=== PATIENT | male | born 1975 | race Caucasian/White ===

== ENCOUNTER → 2017-09-04 | Outpatient (REF) | payer BC, SELFPAY | LOC: M LAB REF 18:23 | PROVIDERS: ATTEND Nurse Practitioner Family | DX: R53.83 Other fatigue (principal) ==

== ENCOUNTER → 2019-05-27 | Outpatient (REF) | payer OTHER ==
[2019-05-27 15:47] LABS: CK-MB VALUE MASS 4.4 NG/ML (<3.6); CPK CREATINE PHOSPHOKINASE 156 U/L (39-308); MB/CK RELATIVE INDEX 2.82 (< OR =4); TROPONIN I < 0.02 NG/ML (< 0.10)
== END ==
LOC: M LAB REF 15:10
PROVIDERS: ATTEND Physician Assistant
DX: R07.9 Chest pain, unspecified (principal)

== ENCOUNTER 2021-07-31 20:26 | Emergency (ER) | payer OTHER ==
[~2021-07-31] VITALS: Ht 182.9 cm; Wt 100.0 kg
[2021-07-31] MEDS ORDERED: ATEN50TA2 PO (20:37)
[2021-07-31] MEDS ORDERED: LOSA50TA88 PO (20:37)
[2021-07-31] MEDS ORDERED: MECLIZINE 25 MG TABLET PO ONE (21:05)
[2021-07-31] MEDS ORDERED: ONDANSETRON 4MG/2ML VIAL IV ONE (21:05)
[2021-07-31] MEDS ORDERED: NS 1,000 ML IV SCH (21:05)
[2021-07-31 21:17] LABS: BASO # 0.1 10^3/uL (0.0-0.2); BASO % 0.9 % (0.0-1.0); EOS # 0.2 10^3/uL (0.0-0.5); EOS % 1.9 % (0.0-3.0); HEMOGLOBIN 15.2 g/dl (13.5-17.5); LYMPH # 2.1 10^3/uL (1.5-5.0); LYMPH % 27.3 % (24.0-44.0); MEAN CORPUSCULAR HEMOGLOBIN 27.1 pg (27.0-33.0); MEAN CORPUSCULAR HGB CONC 33.8 g/dl (32.0-36.5); MEAN CORPUSCULAR VOLUME 80.2 fl (80.0-96.0); MONO # 0.7 10^3/uL (0.0-0.8); MONO % 9.3 % (2.0-8.0); NEUTROPHILS # 4.7 10^3/uL (1.5-8.5); NEUTROPHILS % 60.3 % (36.0-66.0); PLATELET COUNT, AUTOMATED 114 10^3/uL (150-450); RED BLOOD COUNT 5.61 10^6/uL (4.30-6.10); WHITE BLOOD COUNT 7.9 10^3/uL (4.0-10.0)
[2021-07-31 21:58] LABS: ALBUMIN 4.3 GM/DL (3.2-5.2); ALT/SGPT 59 U/L (12-78); BILIRUBIN,DIRECT 0.3 MG/DL (0.0-0.2); BILIRUBIN,TOTAL 1.1 MG/DL (0.2-1.0); BLOOD UREA NITROGEN 14 MG/DL (7-18); CALCIUM LEVEL 9.4 MG/DL (8.5-10.1); CARBON DIOXIDE LEVEL 30 MEQ/L (21-32); CHLORIDE LEVEL 105 MEQ/L (98-107); CPK CREATINE PHOSPHOKINASE 169 U/L (39-308); CREATININE FOR GFR 1.22 MG/DL (0.70-1.30); FREE T4 0.85 NG/DL (0.76-1.46); GLOMERULAR FILTRATION RATE > 60.0 (>60); GLUCOSE, FASTING 104 MG/DL (70-100); MB/CK RELATIVE INDEX 2.96 (< OR =4); POTASSIUM SERUM 3.9 MEQ/L (3.5-5.1); SODIUM LEVEL 141 MEQ/L (136-145); TOTAL PROTEIN 6.9 GM/DL (6.4-8.2); TROPONIN I < 0.02 NG/ML (< 0.10)
[2021-07-31] MEDS ORDERED: METOCLOPRAMIDE INJ 10MG/2ML VIAL (J2765 PER 1) IV ONE (22:15)
[2021-07-31] MEDS ORDERED: ISOVUE-370 76% 100ML VIAL As Ordered ONE (22:17)
--- NOTE | 2021-07-31 22:20 | REPVR ---
PROCEDURE INFORMATION: Exam: MRA Head Without Contrast; Arteriography Exam date and time: 07/31/2021 9:30 PM Age: 46 years old Clinical indication: Dizziness and giddiness and headache and vertigo TECHNIQUE: Imaging protocol: Magnetic resonance angiography head without contrast. Exam focused on the arteries. COMPARISON: No relevant prior studies available. FINDINGS: ANTERIOR CIRCULATION: Right internal carotid artery: Intracranial segment is patent with no significant stenosis. No aneurysm. Right middle cerebral artery: No occlusion or significant stenosis. No aneurysm. Right anterior cerebral artery: No occlusion or significant stenosis. No aneurysm. Left internal carotid artery: Intracranial segment is patent with no significant stenosis. No aneurysm. Left middle cerebral artery: No occlusion or significant stenosis. No aneurysm. Left anterior cerebral artery: No occlusion or significant stenosis. No aneurysm. POSTERIOR CIRCULATION: Right vertebral artery: No occlusion or significant stenosis. No aneurysm. Left vertebral artery: Left vertebral artery is dominant. Basilar artery: No occlusion or significant stenosis. No aneurysm. Right posterior cerebral artery: No occlusion or significant stenosis. No aneurysm. Left posterior cerebral artery: Carotid dominant left posterior cerebral artery. IMPRESSION: No hemodynamically significant stenosis or large vessel occlusion. Electronically signed by: Josemanuel Goddard On 07/31/2021 22:19:26 PM
--- NOTE | 2021-07-31 22:20 | REPVR ---
PROCEDURE INFORMATION: Exam: MR Head Without Contrast Exam date and time: 07/31/2021 9:30 PM Age: 46 years old Clinical indication: Dizziness TECHNIQUE: Imaging protocol: MR of the head without contrast. COMPARISON: No relevant prior studies available. FINDINGS: Ventricles demonstrate normal size and configuration. Major vascular flow voids at the skull base are preserved. No extra-axial fluid collection. No hydrocephalus. No midline shift or intracranial mass effect. No pathologic white-matter signal or cerebral edema. No pathologic susceptibility. No diffusion restriction. Minimal paranasal sinus disease. No significant mastoid effusion. IMPRESSION: No acute intracranial abnormality. Electronically signed by: Josemanuel Goddard On 07/31/2021 22:19:33 PM
[2021-07-31] MEDS ORDERED: KETOROLAC 30 MG/ML 1ML VIAL IV ONE (22:50)
--- NOTE | 2021-07-31 23:33 | REPVR ---
PROCEDURE INFORMATION: Exam: CT Angiography Neck With Contrast Exam date and time: 07/31/2021 11:00 PM Age: 46 years old Clinical indication: Pain; Headache; Additional info: Neck pain, dizzy TECHNIQUE: Imaging protocol: Computed tomography angiography of the neck with contrast. 3D rendering (Not supervised by radiologist): MIP and/or 3D reconstructed images were created by the technologist. Radiation optimization: All CT scans at this facility use at least one of these dose optimization techniques: automated exposure control; mA and/or kV adjustment per patient size (includes targeted exams where dose is matched to clinical indication); or iterative reconstruction. Contrast material: ISOVUE 370; Contrast volume: 75 ml; Contrast route: INTRAVENOUS (IV); COMPARISON: MRA BRAIN W/O CONTRAST 07/31/2021 9:24 PM FINDINGS: Limitations: Artifact arising from metallic dental hardware. Right common carotid artery: No stenosis. No dissection or occlusion. Right internal carotid artery: No stenosis of the extracranial segment. No dissection or occlusion. Right external carotid artery: No occlusion or stenosis of the origin. Left common carotid artery: No stenosis. No dissection or occlusion. Left internal carotid artery: No stenosis of the extracranial segment. No dissection or occlusion. Left external carotid artery: No occlusion or stenosis of the origin. Right vertebral artery: No stenosis. No dissection or occlusion. Left vertebral artery: Left vertebral artery is dominant. Soft tissues: Normal. No significant soft tissue swelling. Bones/joints: No acute fracture. IMPRESSION: No hemodynamically significant stenosis or dissection. REFERENCES: NASCET CRITERIA. The degree of internal carotid artery stenosis is based on NASCET criteria. Normal is no stenosis. Mild is less than 50% stenosis. Moderate is 50-69% stenosis. Severe is 70% to 99% stenosis. Total occlusion is no detectable patent lumen. Electronically signed by: Josemanuel Goddard On 07/31/2021 23:33:10 PM
[2021-07-31] MEDS ORDERED: MECL1TAB31 PO (23:44)
[2021-07-31] MEDS ORDERED: ZOFR4TAB16 PO (23:44)
[2021-07-31 23:45] VITALS: BP 125/62
--- NOTE | 2021-08-01 20:28 | ECGEPIP ---
[facility] - ED Test Date: 2021-07-31 Pat Name: ESTEBAN ULLOA Department: Room: - Gender: Male Entertainment Musician: JJayda : 1975 Requested By: JEAN Garcia Order Number: [id number] Reading MD: Radha Camacho Measurements Intervals [place] Rate: 58 P: 22 VT: 136 QRS: 57 QRSD: 92 T: 20 QT: 412 QTc: 404 Interpretive Statements Sinus bradycardia No prior Electronically Signed on 08-01-2021 20:27:59 EST by Radha Camacho
== END 2021-07-31 23:56 | disposition home or self-care (01) ==
LOC: M ED 20:26
DX: H81.4 Vertigo of central origin (principal); I10 Essential (primary) hypertension; K21.9 Gastro-esophageal reflux disease without esophagitis; Z88.0 Allergy status to penicillin
CPT/HCPCS: 70498; 70544; 70551; 80048; 80076; 82550; 82553; 84439; 84443; 84484; 85025; 93005; 93041; 94760; 96361; 96374; 96375; 99285; J1885; J2405; J2765; Q9967

== ENCOUNTER → 2023-02-20 | Outpatient (CLI) | payer OTHER ==
[~2023-02-20] MED LIST: ATEN50TA2 PO; LOSA50TA28 PO; MECL1TAB31 PO; ZOFR4TAB16 PO
== END ==
LOC: M RAD 06:38
PROVIDERS: ATTEND Nurse Practitioner Family
DX: R10.12 Left upper quadrant pain (principal)

== ENCOUNTER 2025-06-22 12:20 | Emergency (ER) | payer OTHER ==
[~2025-06-22] VITALS: Ht 182.9 cm; Wt 96.7 kg
[~2025-06-22 12:20] MED LIST changes: +MECL-209 PO; -MECL1TAB31 PO
[2025-06-22] MEDS ORDERED: ISOVUE-370 76% 100 ML VIAL As Ordered ONE (13:25)
[2025-06-22 13:38] LABS: BASO # 0.1 10^3/uL (0.0-0.2); BASO % 0.5 % (0.0-1.0); EOS # 0.1 10^3/uL (0.0-0.5); EOS % 0.6 % (0.0-3.0); LYMPH # 1.2 10^3/uL (1.5-5.0); LYMPH % 12.1 % (24.0-44.0); MONO # 1.0 10^3/uL (0.0-0.8); MONO % 10.2 % (2.0-8.0); NEUTROPHILS # 7.4 10^3/uL (1.5-8.5); NEUTROPHILS % 76.0 % (36.0-66.0); PLATELET COUNT, AUTOMATED 131 10^3/uL (150-450)
[2025-06-22 13:43] LABS: ERYTHROCYTE SEDIMENTATION RATE 5 mm/hr (0-20)
[2025-06-22] MEDS: diphenhydrAMINE 50 MG/ML VIAL IV STA (13:51)
[2025-06-22] MEDS: KETOROLAC 30 MG/ML 1 ML VIAL IV ONE (13:51)
[2025-06-22] MEDS: AMPICILLIN SOD/SULBACTAM SOD 3 GM in DEXTROSE 5% (D5W) MINI-BAG PLU 100 ML IV ONE ×2 (13:51→20:11)
[2025-06-22 19:34] VITALS: BP 145/84
[2025-06-22] MEDS ORDERED: HYDR-3713 PO (20:19)
[2025-06-22 20:31] VITALS: O2SAT 95
[2025-06-22] MEDS: NORCO 5/325MG TABLET (HOME DOSE PACK) PO ONE (20:46)
[2025-06-22 20:49] VITALS: TEMP 97.9
== END 2025-06-22 20:56 | disposition home or self-care (01) ==
LOC: M ED 12:20
DX: L03.211 Cellulitis of face (principal); I10 Essential (primary) hypertension; Z88.0 Allergy status to penicillin; Z79.1 Long term (current) use of non-steroidal anti-inflammatories (NSAID); Z79.899 Other long term (current) drug therapy
CPT/HCPCS: 70491; 80047; 85025; 85652; 86140; 96365; 96375; 99285; J0295; J1100; J1200; J1885; Q9967

== ENCOUNTER 2025-06-23 04:10 | Emergency (ER) | payer OTHER ==
[~2025-06-23] VITALS: Ht 182.9 cm; Wt 96.7 kg
[~2025-06-23 04:10] MED LIST changes: +HYDR-3713 PO
[2025-06-23] MEDS: AMPICILLIN SOD/SULBACTAM SOD 3 GM in DEXTROSE 5% (D5W) MINI-BAG PLU 100 ML IV ONE (04:37)
[2025-06-23] MEDS: KETOROLAC 30 MG/ML 1 ML VIAL IV ONE (04:37)
[2025-06-23] MEDS: AMPICILLIN SOD/SULBACTAM SOD 3 GM in DEXTROSE 5% (D5W) MINI-BAG PLU 100 ML IV SCH (10:14)
[2025-06-23 11:02] VITALS: BP 141/88; TEMP 97.8; O2SAT 98
== END 2025-06-23 11:06 | disposition home or self-care (01) ==
LOC: M ED 04:10
DX: L03.211 Cellulitis of face (principal); I10 Essential (primary) hypertension; Z79.1 Long term (current) use of non-steroidal anti-inflammatories (NSAID); Z79.899 Other long term (current) drug therapy; Z88.0 Allergy status to penicillin
CPT/HCPCS: 96365; 96375; 99284; J0295; J1100; J1885

== ENCOUNTER 2025-06-23 18:25 | Emergency (ER) | payer OTHER ==
[~2025-06-23] VITALS: Ht 182.9 cm; Wt 96.7 kg
[2025-06-23] MEDS: AMPICILLIN SOD/SULBACTAM SOD 3 GM in DEXTROSE 5% (D5W) MINI-BAG PLU 100 ML IV ONE (18:41)
[2025-06-23 18:43] VITALS: BP 134/84; TEMP 98.1; O2SAT 98
== END 2025-06-23 20:03 | disposition home or self-care (01) ==
LOC: M ED 18:25
DX: L03.211 Cellulitis of face (principal); I10 Essential (primary) hypertension; Z88.0 Allergy status to penicillin; Z79.2 Long term (current) use of antibiotics; Z79.899 Other long term (current) drug therapy
CPT/HCPCS: 96374; 99283; J0295

== ENCOUNTER 2025-06-24 01:57 | Emergency (ER) | payer OTHER ==
[~2025-06-24] VITALS: Ht 182.9 cm; Wt 97.7 kg
[2025-06-24] MEDS: AMPICILLIN SOD/SULBACTAM SOD 3 GM in DEXTROSE 5% (D5W) MINI-BAG PLU 100 ML IV ONE (02:54)
[2025-06-24 05:28] VITALS: BP 131/80; TEMP 98.4; O2SAT 100
== END 2025-06-24 05:30 | disposition home or self-care (01) ==
LOC: M ED 01:57
DX: L03.211 Cellulitis of face (principal); Z88.0 Allergy status to penicillin; Z79.1 Long term (current) use of non-steroidal anti-inflammatories (NSAID); Z79.2 Long term (current) use of antibiotics; Z79.899 Other long term (current) drug therapy
CPT/HCPCS: 96365; 99283; J0295